=== PATIENT | male | born 2000 | race Hispanic/Latino ===

== ENCOUNTER → 2024-07-28 | Outpatient (POV) | payer OTHER ==
[~2024-07-28] VITALS: Ht 175.3 cm; Wt 77.3 kg
[~2024-07-28] MED LIST: DOXY150C5 PO
[2024-07-28 13:00] VITALS: BP 124/70; O2SAT 99
== END ==
LOC: M IRPOV 12:32
PROVIDERS: ATTEND Radiology Diagnostic Radiology
DX: I87.8 Other specified disorders of veins (principal)
CPT/HCPCS: 93931; G0463

== ENCOUNTER → 2024-12-07 | Outpatient (CLI) | payer OTHER ==
[~2024-12-07] MED LIST changes: +HEPARIN 1,000 UNITS/ML 10 ML VIAL (FOR RADIOLOGY & DIALYSIS ONLY) IV PRN; +NS (Normal Saline) 0.9% 1,000 ML IV SCH; +ONDANSETRON 4MG 2ML VIAL IV PRN; +PERCOCET 5MG/325MG TAB PO PRN
[2024-12-07 08:17] VITALS: TEMP 98
[2024-12-07 08:46] LABS: PLATELET COUNT, AUTOMATED 154 10^3/uL (150-450)
[2024-12-07] MEDS: MIDAZOLAM INJ 2 MG/2 ML VIAL IV PRN (08:57)
[2024-12-07] MEDS: NS (Normal Saline) 0.9% 1,000 ML IV SCH (08:57)
[2024-12-07 09:17] LABS: CALCIUM LEVEL 8.6 MG/DL (8.5-10.1); CARBON DIOXIDE LEVEL 28 MMOL/L (20-31); CHLORIDE LEVEL 105 MMOL/L (98-107); CREATININE FOR GFR 1.00 MG/DL (0.70-1.30); GLOMERULAR FILTRATION RATE > 90.0 (>60); POTASSIUM SERUM 3.9 MMOL/L (3.5-5.1); SODIUM LEVEL 141 MMOL/L (136-145)
[2024-12-07 09:18] LABS: INR 0.99
[2024-12-07] MEDS: HEPARIN 1,000 UNITS/ML 10 ML VIAL (FOR RADIOLOGY & DIALYSIS ONLY) XX SCH (09:56)
[2024-12-07] MEDS: NITROGLYCERIN IN D5W 25 MG/250 ML (100 MCG/ML) XX SCH (09:56)
[2024-12-07] MEDS: LIDOCAINE 1% MDV 20 ML VIAL SC SCH (10:04)
[2024-12-07] MEDS: ISOVUE-300 61% 100 ML VIAL IV SCH (10:05)
[2024-12-07] MEDS: ACETAMINOPHEN 325 MG TAB PO PRN (10:40)
[2024-12-07 12:00] VITALS: BP 130/76; O2SAT 100
== END ==
LOC: M IRPRO 07:28
PROVIDERS: ATTEND Registered Nurse School
DX: I87.9 Disorder of vein, unspecified (principal)
CPT/HCPCS: 36470; 80048; 85027; 85610; 99152; 99153; C1887; J2250; J2305; J3010; Q9967

== ENCOUNTER → 2024-12-27 | Outpatient (POV) | payer OTHER ==
[~2024-12-27] VITALS: Ht 170.2 cm; Wt 77.3 kg
[~2024-12-27] MED LIST changes: -HEPARIN 1,000 UNITS/ML 10 ML VIAL (FOR RADIOLOGY & DIALYSIS ONLY) IV PRN; -NS (Normal Saline) 0.9% 1,000 ML IV SCH; -ONDANSETRON 4MG 2ML VIAL IV PRN; -PERCOCET 5MG/325MG TAB PO PRN
[2024-12-27 09:06] VITALS: BP 143/97; O2SAT 100
== END ==
LOC: M IRPOV 08:55
PROVIDERS: ATTEND Registered Nurse School
DX: Z48.812 Encounter for surgical aftercare following surgery on the circulatory system (principal); M79.645 Pain in left finger(s)

== ENCOUNTER → 2025-01-12 | Outpatient (POV) | payer OTHER ==
[~2025-01-12] VITALS: Ht 165.1 cm; Wt 77.3 kg
[2025-01-12 10:00] VITALS: BP 123/68; O2SAT 97
== END ==
LOC: M IRPOV 09:46
PROVIDERS: ATTEND Radiology Diagnostic Radiology
DX: Z48.812 Encounter for surgical aftercare following surgery on the circulatory system (principal); Q27.31 Arteriovenous malformation of vessel of upper limb